=== PATIENT | female | born 2000 | race African-American/Black ===

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

== ENCOUNTER 2023-02-09 15:49 | Emergency (ER) | payer SELFPAY ==
--- NOTE | ~2023-02-09 | XR_ITS ---
EXAMINATION: XR WRIST, LEFT CLINICAL INFORMATION: Left wrist pain status post trauma. COMPARISON: None available. TECHNIQUE: PA, lateral, scaphoid and oblique views of the left wrist. An indicator arrow points to the distal ulna. FINDINGS: The bones and soft tissues are normal. No fracture. Alignment is anatomic with normal joint spaces. No erosions or abnormal soft tissue calcifications. XR/XR wrist LT min 3V IMPRESSION: Unremarkable left wrist.
[2023-02-09 16:26] VITALS: BP 120/70; PULSE 83; RESP 20; TEMP 36.7; O2SAT 99; BMI 36.3
--- NOTE | 2023-02-09 16:27 | ED_ITS ---
HPI - Extremity Injury (Upper) General Chief Complaint: Extremity Problem Stated Complaint: left wrist pain Time Seen by Provider: 02/09/23 17:34 Source: patient Mode of arrival: ambulatory History of Present Illness HPI narrative: 23-year-old female with atraumatic left wrist pain maximal at left pisiform. Four days, not associated with any fever, chills. Related Data Previous Rx's Medication Instructions Recorded prednisone 20 mg tablet 60 mg PO DAILY 5 days #15 tabs 12/18/21 Allergies Allergy/AdvReac Type Severity Reaction Status Date / Time No Known Allergies Allergy Unverified 03/15/20 19:46 [No Known Allergies*] Review of Systems Review of Systems: Pertinent positives and negatives as stated in HPI PMFSH Past Medical History Source: nursing notes reviewed Social History Social History Alcohol intake: never Patient Tobacco Use Status: Never used Tobacco Advance Directives: No Advance Directives Information Provided: Yes Physical Exam Vital Signs: Vital Signs: Last Vital Signs Temp 98.1 F 02/09/23 16:26 Pulse 83 02/09/23 16:26 Resp 20 02/09/23 16:26 BP 120/70 02/09/23 16:26 Pulse Ox 99 02/09/23 16:26 O2 Del Method Room Air 02/09/23 16:26 BMI result Body Mass Index 36.3 VITAL SIGNS: Reviewed. GENERAL: Well developed, well nourished, in no acute distress. HEAD: Normocephalic/atraumatic EYES: PERRLA, EOMI EARS: Ext canals without abnormality LUNGS: Normal breath sounds. No adventitious sounds or accessory muscle use. SpO2<99> CARDIOVASCULAR: Regular rate and rhythm without noted murmurs ABDOMEN: Soft, non-tender, non-distended with bowel sounds. MUSCULOSKELETAL: No tenderness, deformities, or effusions noted on gross inspection. EXTREMITIES: No cyanosis, clubbing or edema. LEFT WRIST: No swelling, erythema, induration, there is full range of motion to include flexion/extension/supination/pronation, good capillary refill, palpable radial and ulnar pulses. SKIN: Inspection of the skin reveals no rashes NEUROLOGIC: Alert and oriented x 4. Strength and sensation to light touch were grossly intact x 4. Course Course Course Narrative: RME: 23yo F c/o L wrist pain x2-3 days. denies known injury, numbness/tingling Left wrist without noted deformity, tender greatest ulnar aspect. Neurovascular intact. Limited ROM secondary to pain. No snuffbox tenderness X-rays ordered Full HPI, ROS and PE to be performed by primary ED provider. Medical Decision Making Medical Decision Making [facility] Narrative: 23-year-old female with history and clinical presentation consistent with overuse injury, there is no evidence to suggest cellulitis/infection or fracture/dislocation and low clinical suspicion for any arthralgia. I reviewed the x-ray which is negative for fracture/dislocation otherwise my interpretation is in agreement with radiology's impression. I discussed the results with the patient at bedside and discharged home. Differential Diagnosis Differential Diagnoses: The differential diagnosis associated with the presentation includes Please see the discussion above Admission/Observation Consideration of admission/observation: Escalation of care including admission/observation considered Please see the discussion above Radiology Impression Discussion of test interpretation with radiology: I have reviewed the radiologist's reading. Radiologist Impression: Please see the discussion above External Record Review External record reviewed: Outpatient record, Prior outpatient labs and Prior outpatient radiology Discharge Plan Discharge Clinical Impression: Left wrist pain Patient Disposition: Home, Self-Care Instructions: Wrist Injury (ED) Additional Instructions: 1. Tylenol 1000 mg, orally, every 6 hours as needed for pain control. Do not exceed 4000 mg within 24 hours. 2. Ibuprofen 400 mg, orally with milk or food, every 6 hours as needed for pain control. May combine this with the Tylenol for improved symptom relief. 3. I do not recommend restricting the movement of your hand/wrist unless it is at night. 4. Please follow-up with your primary care provider. Return to the ER for any worsening symptoms. Prescriptions: No Action prednisone 20 mg tablet 60 mg PO DAILY 5 Days Qty: 15 0RF
== END 2023-02-09 18:16 | disposition home or self-care (01) ==
PROVIDERS: Emergency Provider Student in an Organized Health Care Education/Training Program
DX: M25.532 Pain in left wrist (principal)
CPT/HCPCS: 73110; 99282; 99283